=== PATIENT | female | born 1975 | race Two or more races ===

== ENCOUNTER 2025-03-21 08:28 | Outpatient (CLI) | payer OTHER, SELFPAY ==
--- NOTE | 2025-03-21 09:15 | CRLHL7_ITS ---
For Patients: As a result of the Cures Act, medical imaging exams and procedure reports are released immediately into your electronic medical record. You may view this report before your referring provider. If you have questions, please contact your health care provider. INDICATION: BILATERAL SCREENING MAMMOGRAM, ASYMPTOMATIC 50 Y/O FEMALE COMPARISON: 10/28/2021, 11/16/2017, 10/02/2015 BY BREAST ASST* PRIORS 10/28/2021, 11/16/2017, 10/02/2015 TECHNIQUE: Digital mammogram in CC and MLO projections including computer-aided detection (CAD) and tomosynthesis. BREAST COMPOSITION: There are scattered areas of fibroglandular density. FINDINGS: No suspicious findings. ASSESSMENT: BI-RADS 1 Negative RECOMMENDATION: Annual screening mammogram. A lay language report of this examination will be provided to the patient. Dictated by: Umang Echeverria MD @ 03/22/2025 10:24:47 (Electronically Signed)
== END 2025-03-21 08:29 | disposition home or self-care (01) ==
LOC: MAMMO 08:29
PROVIDERS: Visit Provider Physician Assistant
DX: Z12.31 Encounter for screening mammogram for malignant neoplasm of breast (principal)
CPT/HCPCS: 77063; 77067; 87624; 88142